=== PATIENT | male | born 1990 | race Caucasian/White ===

== ENCOUNTER 2023-01-21 08:25 | Outpatient (CLI) | payer BC, SELFPAY | END 2023-01-21 08:26 | disposition home or self-care (01) | LOC: NFLDREF 01-23 13:04 | PROVIDERS: PCP Family Medicine; Referring Provider Family Medicine; Visit Provider Family Medicine | DX: Z00.00 Encounter for general adult medical examination without abnormal findings (principal); K21.9 Gastro-esophageal reflux disease without esophagitis; Z13.1 Encounter for screening for diabetes mellitus; Z13.6 Encounter for screening for cardiovascular disorders | CPT/HCPCS: 80053; 80061 ==

== ENCOUNTER 2023-07-22 09:06 | Outpatient (CLI) | payer BC, SELFPAY ==
--- OUTSIDE RECORDS SUMMARY | 2023-07-22 09:10 | XMS_ITS | Clinical Summary ---
Author Name Unknown Organization [facility] Address [place], [place] [address] Care Team Providers Care Metaphysics Teacher Name Role Phone Pcp, No Primary Care Provider Unavailabl e Allergies No known active allergies Medications Medication Sig Dispensed Refills Start Date End Date Status minocycline (MINOCIN) 100 mg capsule Take 100 mg by mouth two times daily. 0 06/09/2023 Active Omeprazole, Bulk, 100 % powd Mix in liquid then take by mouth. 0 Active clotrimazole (LOTRIMIN) 1 % creamIndications:Pen ile rash Apply topically to affected area(s) two times daily. Do this for the next 5-14 days, until rash resolves. If no improvement in 5 days, follow-up with PCP or urgent care. 45 g 0 06/25/2023 Active Encounters Date Type Department Care Team Description 06/25/2023 10:15 AM MILL TENDER Office Visit [facility] - [address] [id number] Chris Casas PA Testicle Pain (Groin area) 06/25/2023 Travel from Last 3 Months Social History Tobacco Use Types Packs/Day Years Used Date Smoking Tobacco: Never Smokeless Tobacco: Never Tobacco Cessation:Counseling Given: Not Answered Alcohol Use Standard Drinks/Week Comments Not Currently 0 (1 standard drink = 0.6 oz pur e alcohol) Sex and Gender Information Value Date Recorded Sex Assigned at Not on file Gender Identity Not on file Sexual Orientation Not on file Obstetrics History Last Filed Vital Signs Vital Sign Reading Time Taken Comments Blood Pressure 135/90 06/25/2023 10:26 AM MILL TENDER Pulse 70 06/25/2023 10:26 AM MILL TENDER Temperature 36.6 ??C (97.8 ??F) 06/25/2023 1 0:26 AM MILL TENDER Respiratory Rate 18 06/25/2023 10:2 6 AM MILL TENDER Oxygen Saturation 100% 06/25/2023 10: 26 AM MILL TENDER Inhaled Oxygen Concentration - - Weight 127.2 kg (280 lb 6.4 oz) 024 10:26 AM MILL TENDER Height - - Body Mass Index - - Plan of Treatment Health Maintenance Due Date Last Done Comments Tdap 11/15/1999 Depression screening for age 12+ 2000 HIV for age 15-65 11/15/2003 BMI (ht and wt on same day) for age 18+ 2006 Hepatitis C screening for ag e 18-79 2006 Tetanus booster 2008 COVID-19 vaccine series ( season) 2023 05/12/2021, 10/09/2020, 09/10/2020 Influenza for age 9-49 02/15/2023 Pneumococcal series for age 6-64 Aged Out No longer eligible b ased on patient's age to complete this topic Care Teams Metaphysics Teacher Relationship Specialty Start Date End Date Pcp, No . PCP - General 06/25/23
--- OUTSIDE RECORDS SUMMARY | 2023-07-22 09:10 | XMS_ITS | Referral Summary ---
Author Name Unknown Organization [facility] Address [address] [place] [id number] Care Team Providers Care Lift Team Technician Name Role Phone No Ref-Primary, Physician Primary Care Provider Allergies No known active allergies Medications Medication Sig Dispensed Refills Start Date End Date Status Misc Natural Products (FIBER 7 PO) Take by mouth daily 0 Active OMEPRAZOLE PO Take by mouth daily 0 Active LORATADINE PO Take by mouth daily 0 Active Active Problems No known active problems Immunizations Name Administration Dates Next Due HepB, Unspecified 02/14/2001 Hepatitis B, Peds 02/09/2002,07/03/1999 Hib, Unspecified 08/28/1990,05/23/1989, 9,01/28/1989 Historical DTP/aP 11/24/1993,08/28/1990,05/23/19 89,03/27/1989,01/28/1989 MMR 02/14/2001,06/13/1990 Polio, Unspecified 11/24/1993,08/28/1990, 989,01/28/1989 Td (Adult), Adsorbed 01/18/2005,02/08/2004 Social History Tobacco Use Types Packs/Day Years Used Date Smoking Tobacco: Every Day Cigarettes 0.5 Smokeless Tobacco: Never Tobacco Cessation:Ready to Q uit: No Alcohol Use Standard Drinks/Week Comments No 0 (1 standard drink = 0.6 oz pur e alcohol) PHQ-2 Answer Date Recorded PHQ-2 Score 0 01/15/2018 Sex and Gender Information Value Date Recorded Sex Assigned at Not on file Gender Identity Not on file Sexual Orientation Not on file Last Filed Vital Signs Vital Sign Reading Time Taken Comments Blood Pressure 122/80 01/15/2018 1:40 PM CDT Pulse 67 01/15/2018 1:40 PM CDT Temperature 36.2 ??C (97.1 ??F) 01/15/2018 1:40 PM CD T Respiratory Rate 20 08/23/2016 12:4 5 AM [employer]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
--- OUTSIDE RECORDS SUMMARY | 2023-07-22 09:10 | XMS_ITS | Clinical Summary ---
Author Name Unknown Organization [place] Address [address] [place] [id number] Care Team Providers Care Controls Designer Name Role Phone No Ref-Primary, Physician Primary [...] Respiratory Rate 20 08/23/2016 12:4 5 AM TEACHER OF THE HEARING IMPAIRED Oxygen Saturation 99% 08/23/2016 12: 06 AM TEACHER OF THE [employer] Inhaled Oxygen Concentration - - Weight 111.2 kg (245 lb 1.6 oz) 01/15/2018 1:40 PM CDT Height 181 cm (5' 11.26) 01/15/2018 1:40 PM CDT Body Mass Index 33.94 01/15/2018 1:40 PM CDT Plan of Treatment Not on file Care Teams Controls Designer Relationship Specialty Start Date End Date No Ref-Primary, Physician PCP - General 01/15/18
== END 2023-07-22 09:07 | disposition home or self-care (01) ==
LOC: LKVREF 09:07
PROVIDERS: PCP Family Medicine; Visit Provider Family Medicine
DX: R30.0 Dysuria (principal)
CPT/HCPCS: 87086

== ENCOUNTER 2024-03-16 07:34 | Outpatient (CLI) | payer BC, SELFPAY | END 2024-03-16 07:35 | disposition home or self-care (01) | PROVIDERS: Visit Provider Physician Assistant Medical | DX: E78.2 Mixed hyperlipidemia (principal); Z13.29 Encounter for screening for other suspected endocrine disorder | CPT/HCPCS: 80053; 80061; 84443 ==